=== PATIENT | female | born 1995 | race Caucasian/White ===

== ENCOUNTER 2019-01-21 10:47 | Emergency (ER) | payer OTHER ==
[~2019-01-21] VITALS: Ht 165.1 cm; Wt 77.1 kg
[2019-01-21] MEDS ORDERED: JARDIANCE10 MG PO (11:03)
[2019-01-21] MEDS ORDERED: LIPITOR 20 MG T20 M1 PO (11:03)
[2019-01-21] MEDS ORDERED: CENTRUM SILVER1 EAC4 PO (11:04)
[2019-01-21] MEDS ORDERED: LOESTRIN1 EAC1 PO (11:04)
[2019-01-21 11:42] LABS: ABSOLUTE EOSINOPHILS 0.2 thou/uL (0.0-0.7); ABSOLUTE LYMPHOCYTES 0.7 thou/uL (0.8-5.3); ABSOLUTE MONOCYTES 0.2 thou/uL (0.0-1.2); ABSOLUTE NEUTROPHILS 5.4 thou/uL (1.6-8.1); BASOPHILS 0.5 %; EOSINOPHILS 3.8 %; HEMATOCRIT 45.4 % (37.0-47.0); HEMOGLOBIN 15.4 gm/dL (12.0-15.0); LYMPHOCYTES 10.4 %; MCH 31.1 pg (26.0-34.0); MCHC 33.9 g/dL (28.0-37.0); MCV 91.8 fL (80.0-100.0); MONOCYTES 3.4 %; NUCLEATED RBCS 0 /100WBC; PLATELET COUNT* 210 thou/uL (150-400); POLYS 81.9 %; RBC 4.94 mil/uL (4.20-5.00); RDW-CV 13.4 % (10.5-14.5); WBC 6.6 thou/uL (4.0-11.0)
[2019-01-21] MEDS ORDERED: ZOFRAN ODT4 MG DISSOLVE (11:54)
[2019-01-21] MEDS ORDERED: ZPAK PO (11:54)
[2019-01-21 12:47] LABS: CALCIUM 8.5 mg/dL (8.5-10.1); POTASSIUM 4.1 mmol/L (3.5-5.1)
[2019-01-21 13:57] VITALS: BP 94/43
== END 2019-01-21 12:13 | disposition home or self-care (01) ==
LOC: M.ERS 10:47
PROVIDERS: Emergency Medicine Emergency Medical Services
DX: J02.9 Acute pharyngitis, unspecified (principal); E10.9 Type 1 diabetes mellitus without complications